=== PATIENT | male | born 1950 | race Caucasian/White ===

== ENCOUNTER 2020-05-13 07:51 | Observation (INO) ==
[2020-05-13] MEDS ORDERED: Ondansetron 4 mg VIAL 2 MG/ML 2 ml VIAL IV ONE (08:07)
[2020-05-13] MEDS ORDERED: NS 0.9% 1000 ml BAG 1,000 ML IV ONE ×2 (08:07→09:11)
[2020-05-13] MEDS ORDERED: Morphine 4 MG/ML VIAL (1 ml) IV ONE ×2 (08:07→09:10)
[2020-05-13 08:21] LABS: ABS Basophils 0.1 10^3/ul (0-0.2); ABS Lymphocytes 0.8 10^3/ul (1.0-4.8); ABS Monocytes 0.3 10^3/ul (0-0.8); Eosinophil % 0.2 %; Hematocrit 50 % (42-52); Hemoglobin 16.9 g/dL (14.0-18.0); Lymphocyte % 6.4 %; Mean Corpuscular HGB Conc 34 g/dL (31-36); Mean Corpuscular Hemoglobin 31 pg (27-31); Mean Corpuscular Volume 91 fL (80-94); Mean Platelet Volume 9.1 fL (7.4-10.4); Platelet Count 185 10^3/uL (150-450); Red Blood Count 5.49 10^6 /uL (4.18-5.48); Red Cell Distribution Width 17 % (10-15); White Blood Count 12.9 10^3/uL (3.5-10.8)
[2020-05-13 08:39] LABS: Albumin 4.6 g/dL (3.2-5.2); Albumin/Globulin Ratio 1.7 (1-3); BUN/Creatinine Ratio 17.6 (8-20); C Reactive Protein 1.91 mg/L (<8.01); Calcium 9.4 mg/dL (8.6-10.3); EGFR African American 54.6 (>60); EGFR Non-African American 45.1 (>60); Globulin 2.7 g/dL (2-4); Potassium 4.1 mmol/L (3.5-5.0); Total Bilirubin 0.9 mg/dL (0.2-1.0); Total Protein 7.3 g/dL (6.4-8.9)
[2020-05-13 09:41] LABS: Urine Appearance Clear; Urine Bilirubin Negative (Negative); Urine Blood Negative (Negative); Urine Color Yellow; Urine Glucose Negative (Negative); Urine Ketones Negative (Negative); Urine Nitrite Negative (Negative); Urine Protein 1+(30 mg/dL) (Negative); Urine Urobilinogen Negative (Negative)
[2020-05-13 09:43] LABS: Urine Bacteria Absent (Absent); Urine Red Blood Cell Trace(0-2/hpf) (Absent); Urine White Blood Cell 1+(6-10/hpf) (Absent)
[2020-05-13] MEDS ORDERED: cefTRIAXone 1 gm/50 mL NS BAG 1 GM/50 ML BAG IV ONE (11:21)
[2020-05-13] MEDS ORDERED: Ondansetron 4 mg VIAL 2 MG/ML 2 ml VIAL IV PRN (13:04)
[2020-05-13] MEDS ORDERED: Pantoprazole VIAL 40 MG VIAL IV SCH (14:00)
[2020-05-13] MEDS: NS 0.9% 1000 ml BAG 1,000 ML IV SCH (16:03)
[2020-05-13] MEDS: HYDROmorphone 0.5 MG/0.5 ML SYRINGE IV SLOW PU PRN (16:22)
[2020-05-13] MEDS: Pantoprazole VIAL 40 MG VIAL IV SCH (16:41)
[2020-05-13] MEDS: Heparin 5000 UNITS/ML 1 mL VIAL SUBCUT SCH (20:45)
[2020-05-14] MEDS: NS 0.9% 1000 ml BAG 1,000 ML IV SCH ×2 (01:48→14:26)
[2020-05-14] MEDS: HYDROmorphone 0.5 MG/0.5 ML SYRINGE IV SLOW PU PRN ×3 (04:07→16:48)
[2020-05-14] MEDS: Heparin 5000 UNITS/ML 1 mL VIAL SUBCUT SCH ×3 (05:40→23:02)
[2020-05-14 05:57] LABS: ABS Basophils 0.1 10^3/ul (0-0.2); ABS Eosinophils 0.1 10^3/ul (0-0.6); ABS Lymphocytes 1.1 10^3/ul (1.0-4.8); ABS Monocytes 0.9 10^3/ul (0-0.8); Eosinophil % 0.6 %; Hematocrit 43 % (42-52); Hemoglobin 14.7 g/dL (14.0-18.0); Lymphocyte % 10.9 %; Mean Corpuscular HGB Conc 34 g/dL (31-36); Mean Corpuscular Hemoglobin 31 pg (27-31); Mean Corpuscular Volume 92 fL (80-94); Mean Platelet Volume 9.3 fL (7.4-10.4); Nucleated Red Blood Cells % 0.1; Platelet Count 142 10^3/uL (150-450); Red Blood Count 4.67 10^6 /uL (4.18-5.48); Red Cell Distribution Width 17 % (10-15); White Blood Count 10.5 10^3/uL (3.5-10.8)
[2020-05-14 06:11] LABS: BUN/Creatinine Ratio 16.3 (8-20); EGFR African American 44.1 (>60); EGFR Non-African American 36.4 (>60); Potassium 4.5 mmol/L (3.5-5.0)
[2020-05-14] MEDS: Isosorbide Mononit ER 60mg TAB PO SCH (08:26)
[2020-05-14] MEDS: Pantoprazole VIAL 40 MG VIAL IV SCH (09:39)
[2020-05-14] MEDS: cefTRIAXone 1 gm/50 mL NS BAG 1 GM/50 ML BAG IVPB SCH (14:26)
[2020-05-14 15:23] LABS: BUN/Creatinine Ratio 15.3 (8-20); EGFR African American 44.4 (>60); EGFR Non-African American 36.7 (>60); Potassium 4.3 mmol/L (3.5-5.0)
[2020-05-15] MEDS: NS 0.9% 1000 ml BAG 1,000 ML IV SCH (00:57)
[2020-05-15 05:34] LABS: ABS Basophils 0.1 10^3/ul (0-0.2); ABS Monocytes 0.9 10^3/ul (0-0.8); Eosinophil % 0.4 %; Hematocrit 42 % (42-52); Hemoglobin 14.2 g/dL (14.0-18.0); Lymphocyte % 9.3 %; Mean Corpuscular HGB Conc 34 g/dL (31-36); Mean Corpuscular Hemoglobin 31 pg (27-31); Mean Corpuscular Volume 91 fL (80-94); Nucleated Red Blood Cells % 0.1; Platelet Count 132 10^3/uL (150-450); Red Blood Count 4.59 10^6 /uL (4.18-5.48); Red Cell Distribution Width 17 % (10-15); White Blood Count 11.1 10^3/uL (3.5-10.8)
[2020-05-15 05:50] LABS: BUN/Creatinine Ratio 14.3 (8-20); Calcium 7.8 mg/dL (8.6-10.3); EGFR African American 44.7 (>60); EGFR Non-African American 36.9 (>60)
[2020-05-15] MEDS: Heparin 5000 UNITS/ML 1 mL VIAL SUBCUT SCH ×3 (07:17→15:51)
[2020-05-15] MEDS: Isosorbide Mononit ER 60mg TAB PO SCH (08:41)
[2020-05-15] MEDS: Pantoprazole VIAL 40 MG VIAL IV SCH (08:44)
[2020-05-15] MEDS ORDERED: Morphine 2 MG/ML SYRINGE ONE (08:56)
[2020-05-15] MEDS ORDERED: Morphine 2 MG/ML SYRINGE IV ONE (09:00)
[2020-05-15] MEDS ORDERED: cefTRIAXone 1 gm/50 mL NS BAG 1 GM/50 ML BAG ONE (10:58)
[2020-05-15] MEDS ORDERED: fentaNYL 100 mcg/2 ml 50 MCG/ML VIAL ONE ×3 (11:03→13:07)
[2020-05-15] MEDS ORDERED: Midazolam 2 mg/2 ml VIAL 1 mg/ml 2 ml VIAL (2 mg) ONE (11:03)
[2020-05-15] MEDS ORDERED: Lidocaine 2% PF 5 ML VIAL ONE (11:05)
[2020-05-15] MEDS ORDERED: Metoclopramide 5 MG/ML VIAL (10 mg) ONE (11:05)
[2020-05-15] MEDS ORDERED: Propofol 10 MG/ML 20 ML BTL ONE (11:05)
[2020-05-15] MEDS ORDERED: EPHEDrine (Pressors) 50 MG/ML VIAL ONE (11:05)
[2020-05-15] MEDS ORDERED: Ondansetron 4 mg VIAL 2 MG/ML 2 ml VIAL ONE (11:05)
[2020-05-15] MEDS ORDERED: Iohexol 180 (CONTRAST) 10 ML SDV IV ONE (12:14)
[2020-05-15] MEDS ORDERED: Lidocaine 2% JELLY 6 ML TOPICAL ONE (12:44)
[2020-05-15] MEDS ORDERED: Ondansetron 4 mg VIAL 2 MG/ML 2 ml VIAL IV PRN (13:18)
[2020-05-15] MEDS ORDERED: DiMENhydriNATE IV 50 mg/ml 1 ml VIAL IV PUSH PRN (13:18)
[2020-05-15] MEDS ORDERED: HYDROmorphone 1 MG/1 ML SYRINGE IV PRN (13:18)
[2020-05-15] MEDS ORDERED: fentaNYL 100 mcg/2 ml 50 MCG/ML VIAL IV PRN (13:18)
[2020-05-15] MEDS ORDERED: Naloxone 0.4 mg VIAL 0.4 mg/ml 1 ml VIAL IV PRN (13:18)
[2020-05-15] MEDS: cefTRIAXone 1 gm/50 mL NS BAG 1 GM/50 ML BAG IVPB SCH (15:21)
[2020-05-15] MEDS: Levalbuterol 0.63MG/3ML NEB UNIT OF USE INH ONE ×2 (15:53→16:08)
[2020-05-15 17:15] VITALS: BP 105/51
[2020-05-15 17:30] LABS: BUN/Creatinine Ratio 17.4 (8-20); Blood Urea Nitrogen 24 mg/dL (6-24); CO2 Carbon Dioxide 22 mmol/L (22-32); Calcium 8.1 mg/dL (8.6-10.3); EGFR African American 61.5 (>60); EGFR Non-African American 50.8 (>60); Glucose 155 mg/dL (70-100); Sodium 133 mmol/L (135-145)
[2020-05-15 17:33] LABS: Chloride 112 mmol/L (101-111)
== END 2020-05-15 19:20 | disposition home or self-care (01) ==
LOC: SSU 07:51 → ED 07:51 → SSU 15:08
PROVIDERS: ADMIT Internal Medicine; ATTEND Internal Medicine

== ENCOUNTER 2021-10-08 11:12 | Observation (INO) ==
[2021-10-08 12:56] LABS: ABS Lymphocytes 0.7 10^3/ul (1.0-4.8); ABS Monocytes 0.6 10^3/ul (0-0.8); ABS Neutrophils 2.8 10^3/ul (1.5-7.7); Eosinophil % 0.2 %; Hematocrit 45 % (42-52); Hemoglobin 15.3 g/dL (14.0-18.0); Mean Corpuscular HGB Conc 34 g/dL (31-36); Mean Corpuscular Hemoglobin 31 pg (27-31); Mean Corpuscular Volume 93 fL (80-94); Mean Platelet Volume 9.1 fL (7.4-10.4); Nucleated Red Blood Cells % 0.1; Platelet Count 120 10^3/uL (150-450); Red Blood Count 4.89 10^6 /uL (4.18-5.48); Red Cell Distribution Width 16 % (10-15); White Blood Count 4.2 10^3/uL (3.5-10.8)
[2021-10-08] MEDS ORDERED: Ondansetron 4 mg VIAL 2 MG/ML 2 ml VIAL IV ONE (13:01)
[2021-10-08 13:10] LABS: ALT 20 U/L (7-52); AST 21 U/L (13-39); Albumin 3.5 g/dL (3.2-5.2); Albumin/Globulin Ratio 1.3 (1-3); Alkaline Phosphatase 58 U/L (35-149); Anion Gap 6 mmol/L (2-11); Blood Urea Nitrogen 25 mg/dL (6-24); CO2 Carbon Dioxide 22 mmol/L (22-32); Calcium 8.3 mg/dL (8.6-10.3); Chloride 103 mmol/L (101-111); Globulin 2.7 g/dL (2-4); Glucose 116 mg/dL (70-100); Sodium 131 mmol/L (135-145); Total Protein 6.2 g/dL (6.4-8.9); eGFR CKD-EPI 69.1 (>60)
[2021-10-08 13:29] LABS: Troponin I 0.07 ng/mL (<0.03)
[2021-10-08 15:59] LABS: Troponin I 0.07 ng/mL (<0.03)
[2021-10-08] MEDS ORDERED: Iohexol 350 (CONTRAST) 500 ML MDV IV ONE (16:16)
[2021-10-08] MEDS ORDERED: Ondansetron 4 mg VIAL 2 MG/ML 2 ml VIAL IV PRN (16:55)
[2021-10-08] MEDS ORDERED: CASIRIVIMAB/IMDEVIMAB SUBCUT 600-600MG/10 ML SUBCUT ONE (17:30)
[2021-10-08 19:03] LABS: Troponin I 0.08 ng/mL (<0.03)
[2021-10-08] MEDS: Enoxaparin 40 MG/0.4 ML SYR SUBCUT SCH (19:10)
[2021-10-09 01:56] LABS: Troponin I 0.07 ng/mL (<0.03)
[2021-10-09] MEDS: Aspirin EC 81 mg TAB.EC (enteric coated) PO SCH (09:57)
[2021-10-09] MEDS: Isosorbide Mononit ER 60mg TAB PO SCH (09:58)
[2021-10-09] MEDS ORDERED: Perflutren Lipid Microsphere 3 ML VIAL ONE (15:18)
[2021-10-09] MEDS: Enoxaparin 40 MG/0.4 ML SYR SUBCUT SCH (17:52)
[2021-10-10 06:29] LABS: ABS Monocytes 0.5 10^3/ul (0-0.8); ABS Neutrophils 4.1 10^3/ul (1.5-7.7); Eosinophil % 0.2 %; Hematocrit 44 % (42-52); Hemoglobin 15.1 g/dL (14.0-18.0); Mean Corpuscular HGB Conc 34 g/dL (31-36); Mean Corpuscular Hemoglobin 32 pg (27-31); Mean Corpuscular Volume 92 fL (80-94); Mean Platelet Volume 9.2 fL (7.4-10.4); Platelet Count 122 10^3/uL (150-450); Red Blood Count 4.79 10^6 /uL (4.18-5.48); Red Cell Distribution Width 17 % (10-15); White Blood Count 5.7 10^3/uL (3.5-10.8)
[2021-10-10 06:46] LABS: Calcium 8.3 mg/dL (8.6-10.3); Potassium 4.3 mmol/L (3.5-5.0); eGFR CKD-EPI 62.4 (>60)
[2021-10-10 08:18] VITALS: BP 123/67
[2021-10-10] MEDS: Isosorbide Mononit ER 60mg TAB PO SCH (08:49)
[2021-10-10] MEDS: Aspirin EC 81 mg TAB.EC (enteric coated) PO SCH (08:50)
== END 2021-10-10 12:00 | disposition home or self-care (01) ==
LOC: EDHOLD 11:12 → ED 11:12 → SUATTDRO 16:55 → MED 20:14
PROVIDERS: ADMIT Hospitalist; ATTEND Internal Medicine

== ENCOUNTER 2021-10-18 10:36 | Inpatient (IN) ==
[2021-10-18] MEDS ORDERED: Albuterol HFA INHALER 8 gm MDI INH ONE (11:19)
[2021-10-18 11:50] LABS: ABS Basophils 0.1 10^3/ul (0-0.2); ABS Eosinophils 0.1 10^3/ul (0-0.6); ABS Lymphocytes 1.1 10^3/ul (1.0-4.8); ABS Monocytes 0.8 10^3/ul (0-0.8); Eosinophil % 1.2 %; Hematocrit 46 % (42-52); Hemoglobin 15.4 g/dL (14.0-18.0); Lymphocyte % 10.7 %; Mean Corpuscular HGB Conc 34 g/dL (31-36); Mean Corpuscular Hemoglobin 31 pg (27-31); Mean Corpuscular Volume 93 fL (80-94); Mean Platelet Volume 8.3 fL (7.4-10.4); Platelet Count 361 10^3/uL (150-450); Red Blood Count 4.95 10^6 /uL (4.18-5.48); Red Cell Distribution Width 17 % (10-15); White Blood Count 10.1 10^3/uL (3.5-10.8)
[2021-10-18 12:05] LABS: Anion Gap 7 mmol/L (2-11); Blood Urea Nitrogen 18 mg/dL (6-24); CO2 Carbon Dioxide 25 mmol/L (22-32); Calcium 9.5 mg/dL (8.6-10.3); Chloride 104 mmol/L (101-111); Glucose 108 mg/dL (70-100); Potassium 4.5 mmol/L (3.5-5.0); Sodium 136 mmol/L (135-145); eGFR CKD-EPI 90.7 (>60)
[2021-10-18] MEDS ORDERED: Iohexol 350 (CONTRAST) 500 ML MDV IV ONE (12:09)
[2021-10-18 12:17] LABS: Troponin I 0.04 ng/mL (<0.03)
[2021-10-18] MEDS ORDERED: Heparin DRIP 25,000 UNITS BAG 25,000 UNITS/500 ML BAG IV SCH (13:15)
[2021-10-18] MEDS ORDERED: Enoxaparin 100 MG/ML SYR SUBCUT ONE (13:15)
[2021-10-18] MEDS ORDERED: Ondansetron 4 mg VIAL 2 MG/ML 2 ml VIAL IV PRN (13:24)
[2021-10-18 13:27] LABS: Activated Partial Thrombo Time 29.6 seconds (26.0-38.0)
[2021-10-18] MEDS ORDERED: Heparin 5000 UNITS/ML 1 mL VIAL IV SCH (14:00)
[2021-10-18 14:25] LABS: Troponin I 0.04 ng/mL (<0.03)
[2021-10-19] MEDS ORDERED: Enoxaparin 100 MG/ML SYR SUBCUT SCH (02:00)
[2021-10-19] MEDS ORDERED: Flu vaccine *QUAD* 2021-22* 0.5 ML SYRINGE IM ONE (09:00)
[2021-10-19] MEDS: Aspirin EC 81 mg TAB.EC (enteric coated) PO SCH (10:21)
[2021-10-19 11:34] LABS: ABS Basophils 0.1 10^3/ul (0-0.2); ABS Eosinophils 0.2 10^3/ul (0-0.6); ABS Monocytes 0.6 10^3/ul (0-0.8); ABS Neutrophils 6.5 10^3/ul (1.5-7.7); Hematocrit 44 % (42-52); Hemoglobin 14.8 g/dL (14.0-18.0); Lymphocyte % 11.7 %; Mean Corpuscular HGB Conc 34 g/dL (31-36); Mean Corpuscular Hemoglobin 31 pg (27-31); Mean Corpuscular Volume 92 fL (80-94); Mean Platelet Volume 8.1 fL (7.4-10.4); Platelet Count 358 10^3/uL (150-450); Red Blood Count 4.75 10^6 /uL (4.18-5.48); Red Cell Distribution Width 16 % (10-15); White Blood Count 8.4 10^3/uL (3.5-10.8)
[2021-10-19 11:57] LABS: Calcium 9.2 mg/dL (8.6-10.3); Potassium 4.5 mmol/L (3.5-5.0); eGFR CKD-EPI 87.2 (>60)
[2021-10-20 05:28] LABS: ABS Basophils 0.1 10^3/ul (0-0.2); ABS Eosinophils 0.2 10^3/ul (0-0.6); ABS Lymphocytes 1.3 10^3/ul (1.0-4.8); ABS Monocytes 0.6 10^3/ul (0-0.8); ABS Neutrophils 6.3 10^3/ul (1.5-7.7); Eosinophil % 2.1 %; Hematocrit 45 % (42-52); Hemoglobin 15.5 g/dL (14.0-18.0); Lymphocyte % 15.4 %; Mean Corpuscular HGB Conc 34 g/dL (31-36); Mean Corpuscular Hemoglobin 32 pg (27-31); Mean Corpuscular Volume 93 fL (80-94); Mean Platelet Volume 8.4 fL (7.4-10.4); Platelet Count 351 10^3/uL (150-450); Red Blood Count 4.86 10^6 /uL (4.18-5.48); Red Cell Distribution Width 16 % (10-15); White Blood Count 8.5 10^3/uL (3.5-10.8)
[2021-10-20 05:46] LABS: Calcium 9.4 mg/dL (8.6-10.3); Potassium 4.4 mmol/L (3.5-5.0); eGFR CKD-EPI 76.3 (>60)
[2021-10-20] MEDS: Aspirin EC 81 mg TAB.EC (enteric coated) PO SCH (09:19)
[2021-10-20 15:19] VITALS: BP 121/62
== END 2021-10-20 18:20 | disposition home or self-care (01) | DRG 137 ==
LOC: ED 10:36 → EDHOLD 14:13 → SUATTDRO 14:18 → MED 16:12
PROVIDERS: ADMIT Student in an Organized Health Care Education/Training Program; ATTEND Internal Medicine